=== PATIENT | female | born 1955 | race Caucasian/White ===

== ENCOUNTER → 2017-03-23 | Outpatient (CLI) | payer OTHER ==
[2013-12-06 16:27] VITALS: BP 129/70
--- NOTE | 2017-03-23 09:51 | KCIC ---
Bilateral digital screening mammograms: Reason for examination: Routine baseline screening. The skin and nipples show no abnormalities. No abnormal axillary lymph nodes are seen. The breast parenchyma shows scattered fibroglandular density. (Breast density: Category B.) There are 2 small nodular densities at the 2:00 C position of the left breast which probably represent intramammary lymph nodes. There is also a nodular density with calcification possibly representing a degenerating fibroadenoma at the 3:00 B position of the left breast 5 cm from the nipple. There are clustered calcifications at the 2:00 B position of the left breast 6 cm from the nipple. There is also some nodular asymmetry at the 10:00 C position of the right breast. There are no other dominant masses, suspicious calcifications or architectural distortions. Impression: Nodular densities at the 2:00 C position of the left breast consistent with intramammary lymph nodes. Clustered calcifications at the 2:00 B position of the left breast. Nodule with calcifications at the 3:00 B position of the left breast. Nodular asymmetry at the 10:00 C position of the right breast. Recommend further evaluation with additional coned magnification views for calcifications and bilateral ultrasound examination for the nodular densities is recommended. BI-RADS category 0: Incomplete. Additional imaging is recommended. "Our facility is accredited by the [employer] Mammography [employer]." This patient's information has been entered into a reminder system for the patient to be notified with the results of her examination and a target date for the next mammogram. Electronically signed by: Felisha Whitten MD (03/23/2017 9:48 AM) [id number]
== END | disposition home or self-care (01) ==
LOC: KCIC MAMMO 08:38
PROVIDERS: ATTEND Family Medicine
DX: Z12.31 Encounter for screening mammogram for malignant neoplasm of breast (principal)
CPT/HCPCS: G0202; 77067

== ENCOUNTER → 2017-04-04 | Outpatient (CLI) | payer OTHER ==
[2013-12-06 16:27] VITALS: BP 129/70
--- NOTE | 2017-04-04 17:23 | KCIC ---
Bilateral diagnostic digital mammograms: Reason for examination: Abnormal screening mammograms. Comparison is made to mammographic exam dated 03/23/2017. Coned compression views were obtained bilaterally. There continues to be some nodular parenchymal asymmetry in the 10:00 C position of the right breast with no associated calcifications. In the left breast, there continues to be some nodularity with coarse calcifications located in the 2:00 B and 3:30 B positions. These probably reflect degenerating fibroadenoma. Further evaluation with ultrasound will follow. IMPRESSION: Nodular asymmetry at the 10:00 C position of the right breast. Nodular densities with coarse calcifications at the 2:00 B and 3:30 B positions of the left breast. Ultrasound to follow. BI-RADS Category 0: Incomplete. Ultrasound to follow. Bilateral breast ultrasound: In the right breast, there is some patchy fibroglandular tissue in the 10:00 position but no other focal cystic or solid nodules. No abnormal lymph nodes are seen in the right axilla. In the left breast at the 2:00 position 6 cm from the nipple, there is a small nodular density measuring approximately 3.9 x 6.2 mm in greatest dimension with coarse calcifications. This probably represents a degenerating fibroadenoma. Follow-up is recommended. In the retroareolar 12:30 position, there is a 9.5 mm air cystic ductal dilatation. In the 4:00 position 4 cm from the nipple, there appear to be 2 small hypoechoic circumscribed nodules probably representing fibroadenoma with the larger nodule measuring approximately 8 mm in greatest dimension and contains in echogenicity consistent with calcifications. This probably represents a fibroadenoma. IMPRESSION: Benign-appearing fibroglandular tissue with no suspicious abnormality seen in the 10:00 position of the right breast. Small nodular densities in the 2:00 position 6 cm from the nipple and in the 4:00 position 4 cm from the nipple of the left breast containing calcifications and appear to correspond with the mammographic findings. These probably represent fibroadenoma. Recommend close follow-up with reevaluation in 3 months with mammograms and ultrasound. BI-RADS Category 3: Probably Benign. "Our facility is accredited by the [employer] Mammography [employer]." This patient's information has been entered into a reminder system for the patient to be notified with the results of her examination and a target date for the next mammogram. Electronically signed by: Felisha Whitten MD (04/04/2017 5:20 PM) [id number]
== END | disposition home or self-care (01) ==
LOC: KCIC MAMMO 08:04
PROVIDERS: ATTEND Family Medicine
DX: N60.02 Solitary cyst of left breast (principal); N60.01 Solitary cyst of right breast; N64.89 Other specified disorders of breast
CPT/HCPCS: 76641; G0204; 77066

== ENCOUNTER → 2017-11-02 | Outpatient (CLI) | payer OTHER | END | disposition home or self-care (01) | LOC: KCIC MAMMO 07:42 | DX: N63.20 Unspecified lump in the left breast, unspecified quadrant (principal); N63.10 Unspecified lump in the right breast, unspecified quadrant; R92.0 Mammographic microcalcification found on diagnostic imaging of breast | CPT/HCPCS: 76641; 77065 ==

== ENCOUNTER → 2019-10-04 | Outpatient (CLI) | payer OTHER ==
[2013-12-06 16:27] VITALS: BP 129/70
--- NOTE | 2019-10-04 10:49 | KCIC ---
MR of the left hip HISTORY: Left hip pain. TECHNIQUE: Routine multiplanar sequences are obtained. FINDINGS: No acute fracture, marrow edema or aggressive bone destruction. No evidence of femoral head osteonecrosis. No significant joint effusion. Signal within the superior through anterior labrum compatible with a tear. No advanced DJD. Gluteus minimus tendinosis without high-grade tear. Gluteus medius tendon intact. Mild hamstring tendinosis. Iliopsoas tendon is intact. Rectus femoris tendon attachment is intact. No evidence of acute soft tissue abnormality. Coronal survey sequence demonstrates no acute findings at the contralateral hip. IMPRESSION: 1. Labral tear. 2. Gluteus minimus tendinosis. Electronically signed by: Ozzie Tenorio MD (10/04/2019 10:46 AM) [id number]
== END | disposition home or self-care (01) ==
LOC: KCIC MRI 08:07
PROVIDERS: ATTEND Family Medicine
DX: S73.102A Unspecified sprain of left hip, initial encounter (principal); M76.02 Gluteal tendinitis, left hip; M76.892 Other specified enthesopathies of left lower limb, excluding foot; X58.XXXA Exposure to other specified factors, initial encounter; Y93.89 Activity, other specified; Y92.89 Other specified places as the place of occurrence of the external cause; Y99.8 Other external cause status
CPT/HCPCS: 73721

== ENCOUNTER → 2019-10-08 | Outpatient (CLI) | payer OTHER ==
[2013-12-06 16:27] VITALS: BP 129/70
--- NOTE | 2019-10-08 18:20 | KCIC ---
Bilateral digital screening mammograms: Reason for examination: Routine screening. Comparison is made to previous studies dated 11/02/2017, 04/04/2017 and 03/23/2017. Interpretation was made with the benefit of CAD. The skin and nipples show no abnormalities. No abnormal axillary lymph nodes are seen. The breast parenchyma shows scattered fibroglandular density. (Breast density: Category B.) There continue to be small nodular parenchymal densities in the left breast, some with calcifications which are stable. There continues to be some asymmetric parenchyma posterior laterally in the right breast which is stable. There does appear to be a new 8.5 mm nodule in the central 8:00 B position of the right breast however and further evaluation with ultrasound is recommended. There are no other new dominant masses, suspicious calcifications or architectural distortions. Some benign calcifications are present. Impression: 8.5 mm nodule centrally at the 8:00 B position of the right breast. Recommend further evaluation with ultrasound. BI-RADS Category 0: Incomplete. Needs additional imaging evaluation. "Our facility is accredited by the [employer] Mammography [employer]." This patient's information has been entered into a reminder system for the patient to be notified with the results of her examination and a target date for the next mammogram. Electronically signed by: Felisha Whitten MD (10/08/2019 6:17 PM) [id number]
== END ==
LOC: KCIC MAMMO 08:09
PROVIDERS: ATTEND Family Medicine
DX: Z12.31 Encounter for screening mammogram for malignant neoplasm of breast (principal); N63.14 Unspecified lump in the right breast, lower inner quadrant
CPT/HCPCS: 77067

== ENCOUNTER 2021-01-02 14:48 | Emergency (ER) | payer MEDICARE ==
[2021-01-01 15:00] VITALS: BP 120/81
[~2021-01-02 14:48] MED LIST: ALBU2.5V8 IH; BUDE10.2 IH; DICL75TA PO; HYDR-2765 PO; LEVO50TA78 PO; LISI20TA18 PO; METH-562 PO
[2021-01-02] MEDS ORDERED: SODIUM BICARB ADULT 8.4% 50 MEQ/50 ML DISP.SYRIN. ONE (15:00)
[2021-01-02] MEDS ORDERED: CALCIUM CHLORIDE 1,000 MG/10 ML DISP.SYRIN ONE (15:00)
[2021-01-02] MEDS ORDERED: EPINEPHrine SYRINGE 1 MG/10 ML SYRINGE ONE (15:00)
--- NOTE | 2021-01-02 15:11 | PHYS DOC ---
Past Medical History Past Medical History: Asthma, COPD, Hypertension, Seizure Past Surgical History: Appendectomy, Tonsillectomy Smoking Status: Former Smoker Alcohol Use: None Drug Use: None General Adult EDM: Chief Complaint: CPR/FULL ARREST HPI: HPI: 65-year-old female past medical history significant for COPD, hypertension obesity presents to the ED brought by EMS status post unwitnessed cardiac arrest of 45 minutes. Per ems report, pt was LKW 1.5 hours prior to 911 call by her male neighbor. Pt was found down, asystole, glucose 136. Supraglottic device p laced and ACLS protocol started. Patient quickly went into V. fib on scene and was shocked with 200 J. Repeat pulse check with V. fib, shocked again. Right EMS arrival patient had given 300 mg of amnio, 2 mg of Narcan, 1 amp of bicarb and 5 epis. Patient remained in asystole. EMR was reviewed and patient was discharged from the hospital yesterday after being managed for COPD exacerbation as a PUI, Covid test negative. Per emr-second covid vaccine was 12/17. Pt was an active tobacco user. Review of Systems: Review of Systems: ROS: Unobtainable 2/2 cardiac arrest Heart Score: C/O Chest Pain: N/A Risk Factors: Risk Factors: DM, Current or recent (<one month) smoker, HTN, HLP, family history of CAD, obesity. Risk Scores: Score 0 - 3: 2.5% MACE over next 6 weeks - Discharge Home Score 4 - 6: 20.3% MACE over next 6 weeks - Admit for Clinical Observation Score 7 - 10: 72.7% MACE over next 6 weeks - Early Invasive Strategies Allergies: Allergies: Allergies Coded Allergies Type Severity Reaction Last Updated Verified tramadol Allergy Intermediate 12/31/20 Yes Sulfa (Sulfonamide Antibiotics) Adverse Reaction Intermediate Unknown 12/31/20 Yes Physical Exam: PE: Constitutional: uresponsive, afebrile (normothermic per rectal temp) HENT: no signs of trauma, moist mucous membranes Eyes: fixed and dilated, conjunctiva normal, no discharge. Neck: supple, no rigidity Cardiovascular: pea on monitor, Lungs & Thorax: bl breath sounds on arrival, anterior airway, yellow/white frothy secretions from trachea, no spontaneous chest rise/is agonal Abdomen: soft, no tenderness, obese Skin: central and peripheral cyanosis, cold skin Back: No midline step offs, no signs of trauma Extremities: no unilateral bilateral lower extremity edema Neurologic: GCS0, no deficits EKG: EKG: [] Radiology/Procedures: Radiology/Procedures: Indication: Respiratory failure Consent: Unable to give consent due to emergent nature. Medications Used: see nursing note Procedure: The patient was placed in the appropriate position. Intubation was performed via glide scope: 4, 7-5 ett, 20 at lip. Difficult anterior airway with respiratory secretions. ET tube secured with ET tube device. Initial confirmation of placement included bilateral breath sounds, tube fogging, adequate chest rise, adequate pulse oximetry reading. End tidal CO2 went from 76 to 24. A chest x-ray to verify correct placement of the tube showed appropriate tube position. Complications: none. Course & Med Decision Making: Course & Med Decision Making Pertinent Labs and Imaging studies reviewed. (See chart for details) Concern for unwitnessed cardiac arrest w/90 minute [place]. [facility] 45 minutes. ACLS protocol started in ed and advanced airway was placed by myself. Medications including epinephrine, bicarb and calcium were given in the ED. Patient with PEA and asystole on frequent rhythm checks. Bedside ultrasound with minimal cardiac activity. Unable to obtain ROSC. Time of called [id number]. Next of kin, son, Glenn Shah notified-he declined an autopsy. He i nformed me that pt signed dnr/dni papers but that he refuses to speak to pts' neighbor who likely did not know about pts' code status, that he doesn't speak to him, "he's not very smart." letter of credit document examiner notified-I briefly updated Dr. Virgil Elmore on pts' hx/presenting sxs, who reported pt was not a coroners case. Ddx: AMI, PE, COPD w/CO retention/exacerbation, etc. Police later called ed requesting autopsy, suspicious behavior with neighbor who has been arrested. Son agrees with this plan. Critical Care: Authorized and Performed by: Vikki Pickering DO Total critical care time: approximately 35 minutes Due to a high probability of clinically significant, life threatening deterioration, the patient required my highest level of preparedness to intervene emergently and I personally spent this critical care time directly and personally managing the patient. This critical care time included obtaining a history; examining the patient; pulse oximetry; ventilator management if necessary; ordering and review of studies; arranging urgent treatment with development of a management plan; evaluation of patient's response to treatment; frequent reassessment; discussion with patient/family; and, discussions with other providers. This critical care time was performed to assess and manage the high probability of imminent, life-threatening deterioration that could result in multi-organ failure. It was exclusive of separately billable procedures and treating other patients and teaching time. Please see MDM section and the rest of the note for further information on patient assessment and treatment. Dragon Disclaimer: Dragon Disclaimer: This electronic medical record was generated, in whole or in part, using a voice recognition dictation system. Departure Departure Impression: Primary Impression: Cardiac arrest Additional Impressions: Ventricular fibrillation COPD (chronic obstructive pulmonary disease) Disposition: 20 Condition: Referrals: ALEX FINNEY MD (PCP) VIKKI PICKERING DO Jan 02, 2021 15:11
== END 2021-01-02 18:13 ==
LOC: ER 14:48
DX: I46.9 Cardiac arrest, cause unspecified (principal); I49.01 Ventricular fibrillation; J44.9 Chronic obstructive pulmonary disease, unspecified; I10 Essential (primary) hypertension; Z90.89 Acquired absence of other organs; Z88.6 Allergy status to analgesic agent; Z88.2 Allergy status to sulfonamides
CPT/HCPCS: 31500; 92950; 99285; J0171; J3490